=== PATIENT | female | born 1990 | race Caucasian/White ===

== ENCOUNTER 2020-04-09 09:01 | Emergency (ER) | payer SELFPAY ==
[~2020-04-09] VITALS: Ht 157.5 cm; Wt 84.2 kg
[2020-04-09 09:05] VITALS: BP 130/81
[2020-04-09] MEDS ORDERED: NEOSPORIN OINT. PKT 1 PACKET ONE (09:56)
== END 2020-04-09 10:37 | disposition home or self-care (01) ==
LOC: ED 09:22
DX: S50.811A Abrasion of right forearm, initial encounter (principal); S50.812A Abrasion of left forearm, initial encounter; S63.511A Sprain of carpal joint of right wrist, initial encounter; K08.89 Other specified disorders of teeth and supporting structures; W18.39XA Other fall on same level, initial encounter; Y93.89 Activity, other specified; Y92.89 Other specified places as the place of occurrence of the external cause; Y99.8 Other external cause status
CPT/HCPCS: 29125; 99283